=== PATIENT | male | born 1945 | race Caucasian/White ===

== ENCOUNTER → 2017-01-13 | Outpatient (CLI) | payer MEDICARE, BC ==
[~2017-01-13] MED LIST: FLOMAX 0.40.4 MG/CAP PO
== END ==
LOC: COL.RAD 07:57
DX: K75.9 Inflammatory liver disease, unspecified (principal); R74.0 Nonspecific elevation of levels of transaminase and lactic acid dehydrogenase [LDH]

== ENCOUNTER → 2017-02-27 | Outpatient (CLI) | payer MEDICARE, BC | LOC: COL.RAD 07:43 | DX: K44.9 Diaphragmatic hernia without obstruction or gangrene (principal); I51.7 Cardiomegaly; I31.3 Pericardial effusion (noninflammatory); N40.0 Benign prostatic hyperplasia without lower urinary tract symptoms; K76.89 Other specified diseases of liver | CPT/HCPCS: Q9967 ==

== ENCOUNTER 2017-03-03 13:30 | Day surgery (SDC) | payer MEDICARE, BC ==
[~2017-03-03] VITALS: Ht 175.3 cm; Wt 76.2 kg
[2017-03-03 13:58] VITALS: BP 139/74; PULSE 54; TEMP 97.8
[2017-03-03] MEDS ORDERED: FLOMAX 0.40.4 MG/CAP PO (14:04)
[2017-03-03 16:30] VITALS: BP 122/59; PULSE 50; TEMP 97.6
[2017-03-03 16:45] VITALS: BP 124/63; PULSE 50
[2017-03-03 17:00] VITALS: BP 122/62; PULSE 52
[2017-03-03 17:15] VITALS: BP 130/62; PULSE 51
[2017-03-03 17:45] VITALS: BP 143/70; PULSE 53
== END 2017-03-03 21:03 | disposition home or self-care (01) ==
LOC: SDCO 13:30 → SURG 16:30 → SDCO 21:03
DX: C24.0 Malignant neoplasm of extrahepatic bile duct (principal); K83.1 Obstruction of bile duct; K83.8 Other specified diseases of biliary tract; R94.5 Abnormal results of liver function studies; R17 Unspecified jaundice
CPT/HCPCS: OP; C1769; C2625; J1610; J2704; J3010; Q9967

== ENCOUNTER → 2017-04-16 | Outpatient (CLI) | payer MEDICARE, BC | LOC: COL.RAD 07:40 | DX: I31.3 Pericardial effusion (noninflammatory) (principal); J90 Pleural effusion, not elsewhere classified; N40.0 Benign prostatic hyperplasia without lower urinary tract symptoms; K86.89 Other specified diseases of pancreas; K76.9 Liver disease, unspecified | CPT/HCPCS: Q9967 ==

== ENCOUNTER → 2017-04-25 | Outpatient (CLI) | payer MEDICARE, BC | LOC: COL.RAD 12:06 | DX: R16.0 Hepatomegaly, not elsewhere classified (principal); K76.89 Other specified diseases of liver; K86.89 Other specified diseases of pancreas; N28.1 Cyst of kidney, acquired; N40.0 Benign prostatic hyperplasia without lower urinary tract symptoms; Z96.89 Presence of other specified functional implants | CPT/HCPCS: A9585 ==

== ENCOUNTER 2020-03-18 13:11 | Emergency (ER) | payer MEDICARE, BC ==
[~2020-03-18] VITALS: Ht 172.7 cm; Wt 72.7 kg
[2020-03-18 13:24] VITALS: TEMP 98.2
[2020-03-18 13:51] LABS: BASO % 0.2 % (0.0-2.0); EOS % 0.5 % (0-4.0); GRAN # 4.4 (1.4-6.5); HEMATOCRIT 35.1 % (42.0-52.0); HEMOGLOBIN 11.6 g/dl (13.5-18.0); LYMPH # 0.8 (1.2-3.4); LYMPH % 12.5 % (20.0-51.0); MEAN CELL VOLUME 97 fl (80.0-100.0); MEAN CORPUSCULAR HEMOGLOBIN 32 pg (27.0-31.0); MEAN CORPUSCULAR HGB CONC 33 g/dl (33.0-37.0); MONO # 0.8 (0.1-0.6); MONO % 13.5 % (1.7-9.3); PLATELET COUNT 124 K/mm3 (130-400); RED BLOOD COUNT 3.63 M/mm3 (4.20-5.60); REDCELL DISTRIBUTION WIDTH-CV 15.8 % (11.5-14.5)
[2020-03-18 13:53] LABS: INR 1.1 (0.8-3.0); PROTHROMBIN TIME 12.8 SECONDS (9.7-12.8)
[2020-03-18 13:56] LABS: PARTIAL THROMBOPLASTIN TIME 44.6 SECONDS (26.0-37.0)
[2020-03-18 14:02] LABS: ALBUMIN 3.7 gm/dL (3.5-5.0); BILIRUBIN,TOTAL 1.8 mg/dL (0.0-1.0); C-REACTIVE PROTEIN 5.5 mg/dL (0.0-0.9); CALCIUM 8.8 mg/dL (8.4-10.2); CREATININE, serum 1.07 (0.66-1.25); POTASSIUM 3.5 mmol/L (3.4-5.0)
[2020-03-18 15:13] LABS: COLLECTION METHOD CLEAN CATCH
[2020-03-18 15:30] LABS: MUCOUS Present /lpf; PH 5 (5-8); SQUAMOUS EPITHELIAL None Seen /hpf; URINE APPEARANCE Clear; URINE BACTERIA None Seen /hpf; URINE BILIRUBIN Negative (NEGATIVE); URINE BLOOD Negative (NEGATIVE); URINE COLOR Amber; URINE GLUCOSE Negative (NEGATIVE); URINE KETONE Negative (NEGATIVE); URINE LEUKOCYTE ESTERASE Negative (NEGATIVE); URINE NITRATE Negative (NEGATIVE); URINE PROTEIN(semi-quant) Negative (NEGATIVE); URINE RBC None Seen /hpf; URINE UROBILINOGEN Negative (NEGATIVE)
[2020-03-18 16:15] VITALS: BP 139/81; PULSE 70
== END 2020-03-18 16:25 | disposition home or self-care (01) ==
LOC: COL.ER 13:11
PROVIDERS: Emergency Medicine
DX: C22.1 Intrahepatic bile duct carcinoma (principal); R11.2 Nausea with vomiting, unspecified
CPT/HCPCS: J1644; J2405; J7030; Q9967

== ENCOUNTER → 2020-06-06 | Outpatient (CLI) | payer MEDICARE, BC | LOC: ZCOL.LAB 14:57 | DX: Z20.828 Contact with and (suspected) exposure to other viral communicable diseases (principal) ==

== ENCOUNTER → 2020-09-04 | Outpatient (CLI) | payer MEDICARE, BC | LOC: ZCOL.LAB 16:15 | DX: Z20.828 Contact with and (suspected) exposure to other viral communicable diseases (principal) ==

== ENCOUNTER 2021-09-18 23:36 | Observation (INO) | payer MEDICARE, BC ==
[~2021-09-18] VITALS: Ht 172.7 cm; Wt 75.3 kg
[2021-09-19 00:24] LABS: HEMOGLOBIN 10.6 g/dl (13.5-18.0); MEAN CELL VOLUME 95 fl (80.0-100.0); MEAN CORPUSCULAR HEMOGLOBIN 32 pg (27.0-31.0); MEAN CORPUSCULAR HGB CONC 33 g/dl (33.0-37.0); MEAN PLATELET VOLUME 11.3 fl (7.4-10.4); PLATELET COUNT 114 K/mm3 (130-400); RED BLOOD COUNT 3.37 M/mm3 (4.20-5.60); REDCELL DISTRIBUTION WIDTH-CV 15.9 % (11.5-14.5)
[2021-09-19 00:25] LABS: HEMATOCRIT 32.1 % (42.0-52.0)
[2021-09-19 00:43] LABS: ALBUMIN 2.9 gm/dL (3.4-4.8); BILIRUBIN,TOTAL 3.6 mg/dL (0.2-1.2); CALCIUM 8.1 mg/dL (8.4-10.2); CREATININE, serum 0.86 mg/dL (0.72-1.25); POTASSIUM 3.9 mmol/L (3.5-4.5); TOTAL PROTEIN 5.7 gm/dL (6.2-8.1)
[2021-09-19 00:57] LABS: LYMPHOCYTE 5 % (20.0-51.0); NEUTROPHILS 86 % (42.0-75.2); PLATELET ESTIMATE DECREASED (NORMAL)
[2021-09-19 02:22] LABS: COLLECTION METHOD CLEAN CATCH
[2021-09-19 02:27] LABS: MUCOUS Present /lpf; PH 5 (5-8); SQUAMOUS EPITHELIAL None Seen /hpf; URINE APPEARANCE Clear; URINE BACTERIA None Seen /hpf; URINE BILIRUBIN Negative (NEGATIVE); URINE BLOOD Negative (NEGATIVE); URINE COLOR Amber; URINE GLUCOSE Negative (NEGATIVE); URINE KETONE Negative (NEGATIVE); URINE LEUKOCYTE ESTERASE Negative (NEGATIVE); URINE NITRATE Negative (NEGATIVE); URINE PROTEIN(semi-quant) Negative (NEGATIVE); URINE RBC 0-2 /hpf
[2021-09-19] MEDS ORDERED: ANIMAL SHAPES1 CT2 PO (03:17)
[2021-09-19] MEDS ORDERED: ZOFRAN8 MG PO (03:18)
[2021-09-19] MEDS ORDERED: URSO250 MG (03:20)
[2021-09-19] MEDS ORDERED: IRINOTECAN (03:25)
[2021-09-19] MEDS ORDERED: 5FU 1GM/20 ML (03:27)
--- NOTE | 2021-09-19 03:44 | NUR ---
Arrived to room 323 via wheelchair.
[2021-09-19 03:52] VITALS: BP 149/70; PULSE 61; TEMP 97.8
[2021-09-19] MEDS ORDERED: 5FU 1GM/20 ML IV (04:43)
[2021-09-19] MEDS ORDERED: [UNRECOGNIZED DRUG - OTHER] IV (04:44)
--- NOTE | 2021-09-19 04:50 | NUR ---
Spoke to EVELYN Hanley-Hospitalist about Deyvi Cath vs INT. States okay to leave port accessed and not start INT.
[2021-09-19 07:23] VITALS: BP 110/63; PULSE 56; TEMP 97.7
--- NOTE | 2021-09-19 09:07 | NUR ---
Patient at the sink washing his hand upon entering the room. Patient has no complaints/concerns at this time. Patient is currently NPO for an US of the RUQ. This RN received in report that the plan is for the patient to transfer to once a bed is available.
--- NOTE | 2021-09-19 10:23 | NUR ---
SW met with the patient to discuss discharge plan. The patient lives in [place] with his , Makenzie (ph#[phone]). He reports independence with ADLs and does not have any DME. The patient's PCP is Dr. Aracely Khalil and he receives his medications from [facility]. He report no difficulties obtaining his meds. The patient valle not have a DPOA-HC in EMR, but he states that he does have one completed and that he designated his . The patient is to tentatively transfer to [facility]. He has been accepted and is awaiting bed availability. SW to follow as needed.
[2021-09-19 11:18] VITALS: BP 111/62; PULSE 67; TEMP 97.5
--- NOTE | 2021-09-19 12:48 | NUR ---
Initial visit; Patient thanked [employer] for looking in on him and offering God's blessings. Patient stated he didn't have any spiritual needs today.
--- NOTE | 2021-09-19 13:16 | NUR ---
[employer] Project Planner, Animation Artist RN, confirmed via phone call patient transfer acceptance under [facility] at [facility]; awaiting physical bed opening; [facility] transfer line has [facility] Animation Artist's direct line for updates; transfer paperwork initiated and working copies on pts hard chart; [facility] team and primary RN aware.
--- NOTE | 2021-09-19 15:50 | NUR ---
Patient discharged via EMS to for a higher level of care. This RN called Teressa CA-[facility] to give nurse report.
== END 2021-09-19 15:45 | disposition short-term general hospital (02) ==
LOC: COL.ER 23:36 → SURG 09-19 03:19
PROVIDERS: Emergency Medicine; ADMIT Internal Medicine
DX: T80.212A Local infection due to central venous catheter, initial encounter (principal); R78.81 Bacteremia; C22.1 Intrahepatic bile duct carcinoma; E80.7 Disorder of bilirubin metabolism, unspecified; D64.9 Anemia, unspecified
CPT/HCPCS: 99223-AI; G0378; J0692; J1650; J2543; J3370; J7050

== ENCOUNTER 2022-01-17 11:06 | Emergency (ER) | payer MEDICARE, BC ==
[~2022-01-17] VITALS: Ht 172.7 cm; Wt 77.3 kg
[~2022-01-17 11:06] MED LIST changes: +5FU 1GM/20 ML; +5FU 1GM/20 ML IV; +ANIMAL SHAPES1 CT2 PO; +IRINOTECAN; +URSO250 MG; +ZOFRAN8 MG PO; +[UNRECOGNIZED DRUG - OTHER] IV
[2022-01-17 14:32] VITALS: BP 134/78; PULSE 79
== END 2022-01-17 14:32 | disposition home or self-care (01) ==
LOC: COL.ER 11:06
DX: C22.1 Intrahepatic bile duct carcinoma (principal); R18.8 Other ascites; Z96.89 Presence of other specified functional implants; Z92.21 Personal history of antineoplastic chemotherapy
CPT/HCPCS: 19804